=== PATIENT | male | born 1965 ===

== ENCOUNTER 2018-11-16 11:15 | Day surgery (SDC) | payer SELFPAY ==
[2018-11-14 18:48] VITALS: BMI 37.5
--- NOTE | 2018-11-16 11:55 | CP.SDSHP ---
Same Day Surgery H & P - History Proposed Procedure: Removal of scalp lesions Pre-Op Diagnosis: multiple scalp lesions - Previous Medical/Surgical History Cardiac: Hypertension Endocrine/Metabolic: Diabetes Pain: 0. No Pain Previous Surgical History: sebacesous cyst removal - Allergies Allergies: Allergies No Known Allergies Allergy (Verified 11/14/18 18:47) - Current Medications Current Medications: lisinopril, metformin, statin - Physical Exam General Appearance: NAD, well nourished, nontoxic Mental Status: Alert & Oriented x3 Neuro: WNL Heart: WNL Lungs: WNL GI: WNL - {Optional Preform as Required} Other Pertinent Findings: 2 scalp lesions: one posterior near occipital region and one posterior midline of parietal region - Impression Impression: 53 M with PMH of DM, vitiligo, HTN, HLD presents for Removal of scalp lesions Pt. Evaluated Today:Candidate for Anesthesia & Procedure: Yes - Date & Time Date: 11/16/18 Time: 11:55 Short Stay Discharge - Short Stay Discharge Admitting Diagnosis/Reason for Visit: L72.3 Disposition: HOME/ ROUTINE Referrals: Germain Ragland MD [Primary Care Provider] - Additional Instructions (Diet, Activity): f/u within 1-[address] Pichardo May shower Keep area clean and dry May apply bacitracin to wound for 48-72hrs Call Dr. Pichardo's office for any issues Progress Note/Discharge Note with Instructions: 53 M with PMH of DM, vitiligo, HTN, HLD s/p Removal of scalp lesions Patient to be discharged home f/u with Dr. Marino wayne 1-2 weeks
[2018-11-16 12:10] VITALS: RESP 18
[2018-11-16] MEDS ORDERED: Lidocaine 1% w Epi 1:100,000 Inj ONE (14:08)
[2018-11-16] MEDS ORDERED: Bacitracin Ointment 30 GM TUBE ONE (14:50)
[2018-11-16] MEDS ORDERED: Bacitracin OINT 15GM TOP ONE (15:10)
--- NOTE | 2018-11-16 15:20 | PCM.SURG1 ---
Surgeon's Initial Post Op Note - Surgeon's Notes Surgeon: Dr. Pichardo Process Trainer: Madison PGY2 Type of Anesthesia: Local Pre-Operative Diagnosis: Two Scalp lesions Operative Findings: 2 scalp sebaceous cysts Post-Operative Diagnosis: 2 scalp sebaceous cysts Operation Performed: Removal of two scalp sebaceous cysts Specimen/Specimens Removed: 2 scalp sebaceous cysts Estimated Blood Loss: EBL {In ML}: 2 Blood Products Given: N/A Drains Used: No Drains Post-Op Condition: Good Date of Surgery/Procedure: 11/16/18 Time of Surgery/Procedure: 15:20
[2018-11-16 15:33] VITALS: BP 144/80; PULSE 63; TEMP 98.2; O2SAT 99
--- NOTE | 2018-11-16 20:26 | PCM.OP ---
Operative Report - Operative Report Date of Surgery/Procedure: 11/16/18 Time of Surgery/Procedure: 15:18 Surgeon: Dr. Pichardo Broom Worker: Madison GALAN Anesthesia/Sedation: Local Pre-Operative Diagnosis: Scalp sebaceous cysts Post-Operative Diagnosis: Scalp sebaceous cysts Indication for Surgery: Scalp sebaceous cysts Operative Findings: Two Scalp sebaceous cysts Procedure/Operation Description: Excision of two Scalp sebaceous cysts Estimated Blood Loss: <5 cc Complications: None Specimen: Two Scalp sebaceous cysts Discharge & Condition: 53 M with PMH of vitiligo, HTN, DM presents for excision of scalp sebaceous cysts. Consent was obtained prior to the procedure. Risks and benefite discussed at length with patient who verbalized understanding and agreement. Patient was taken to operating room and placed in prone position. SCDs were applied. The patient head was prepped and draped in the usual sterile fashion. Timeout was performed. Local was used for anesthesia. #15 blade was used to make two incision over both scalp lesions. The larger and more posterior lesion was expressed and excision using manual pressure. Hemostasis was achieved. The second more anterior lesion was then expressed and excised in the same manner using manual pressure. Again, hemostasis was achieved. Cysts were sent off as specimens. Bacitracin was applied as dressing to each site. All nursing counts were correct and confirmed. Patient was then transferred back to [facility]. Patient to be discharged home from [facility]. He is to follow up with Dr. Pichardo within 1-2 weeks.
== END 2018-11-16 15:50 | disposition home or self-care (01) ==
LOC: H.OPSURG 11:15
PROVIDERS: ATTEND Specialist
DX: L72.3 Sebaceous cyst (principal); E11.9 Type 2 diabetes mellitus without complications; E78.5 Hyperlipidemia, unspecified; I10 Essential (primary) hypertension; L80 Vitiligo; Z79.84 Long term (current) use of oral hypoglycemic drugs; Z79.899 Other long term (current) drug therapy